=== PATIENT | male | born 2000 | race Hispanic/Latino ===

== ENCOUNTER 2024-02-26 01:32 | Emergency (ER) | payer SELFPAY ==
[~2024-02-26] VITALS: Ht 180.3 cm; Wt 99.8 kg
[2024-02-26 01:48] VITALS: TEMP 98.1
[2024-02-26 02:07] LABS: BASOPHILS # (AUTO) 0.04 K/uL (0.00-0.20); BASOPHILS % (AUTO) 0.5 % (0.0-5.0); EOSINOPHILS # (AUTO) 0.31 K/uL (0.00-0.70); EOSINOPHILS % (AUTO) 3.7 % (0.0-8.0); HEMATOCRIT 44.9 % (42-54); IMMATURE GRANULOCYTE ABSOLUTE 0.02 K/uL (0-1); LYMPHOCYTES # (AUTO) 3.2 K/uL (1.0-4.8); LYMPHOCYTES % (AUTO) 37.6 % (21.0-51.0); MEAN CORPUSCULAR HEMOGLOBIN 31.4 pg (27.0-33.0); MEAN CORPUSCULAR HGB CONC 35.6 g/dL (32.0-36.0); MONOCYTES # (AUTO) 0.7 K/uL (0.1-1.0); MONOCYTES % (AUTO) 8.5 % (3.0-13.0); NEUTROPHILS # (AUTO) 4.1 K/uL (1.8-7.7); NEUTROPHILS % (AUTO) 49.5 % (40.0-77.0); PLATELET COUNT (AUTO) 254 K/uL (130-400); RED CELL DISTRIBUTION WIDTH 11.9 % (11.0-15.5); WHITE BLOOD COUNT (AUTO) 8.4 K/uL (4.8-10.8)
[2024-02-26] MEDS: ondanSETRON 4MG INJ IVP ONE (02:11)
[2024-02-26] MEDS: morPHINE 2 MG SYG IVP ONE (02:11)
[2024-02-26] MEDS: teTANUS/diphthERIA TOXOID [ADULT] 0.5 ML VIAL IM ONE (02:13)
[2024-02-26 02:15] LABS: CREATININE 1.1 mg/dL (0.5-1.3); POTASSIUM 3.7 mmol/L (3.5-5.1)
[2024-02-26] MEDS: ceFAZolin SODIUM 1 GM VIAL IVPB ONE (02:30)
[2024-02-26] MEDS: LIDOCAINE HCL 1% 20 ML VIAL INJ SCH (02:39)
[2024-02-26 03:32] VITALS: BP 147/106; PULSE 57; RESP 20; O2SAT 99
[2024-02-26] MEDS: 0.9%NACL 1000ML 1,000 ML IV ONE (03:35)
[2024-02-26] MEDS ORDERED: CEPH500B PO (03:52)
== END 2024-02-26 04:16 | disposition home or self-care (01) ==
LOC: EDH 01:32
DX: S61.210A Laceration without foreign body of right index finger without damage to nail, initial encounter (principal); S61.212A Laceration without foreign body of right middle finger without damage to nail, initial encounter; W22.8XXA Striking against or struck by other objects, initial encounter; Y93.89 Activity, other specified; Y92.89 Other specified places as the place of occurrence of the external cause; Y99.8 Other external cause status
CPT/HCPCS: 99284; 96374; 96375; 80048; 85025; 36415; 90714; 73130; 90471; 12002; J0690; J2270; J7030; J2405

== ENCOUNTER 2024-03-09 14:18 | Emergency (ER) | payer SELFPAY ==
[~2024-03-09] VITALS: Ht 177.8 cm; Wt 102.1 kg
[~2024-03-09 14:18] MED LIST: CEPH500B PO
[2024-03-09 14:19] VITALS: BP 142/100; PULSE 86; RESP 16; TEMP 98
== END 2024-03-09 14:49 | disposition home or self-care (01) ==
LOC: EDH 14:18
DX: S61.210D Laceration without foreign body of right index finger without damage to nail, subsequent encounter (principal); S61.212D Laceration without foreign body of right middle finger without damage to nail, subsequent encounter; Z48.02 Encounter for removal of sutures; X58.XXXD Exposure to other specified factors, subsequent encounter
CPT/HCPCS: 99281